=== PATIENT | male | born 1975 | race Caucasian/White ===

== ENCOUNTER 2018-06-18 08:22 | Emergency (ER) | payer OTHER ==
[2018-06-18 08:37] VITALS: BP 98/55
--- NOTE | 2018-06-18 09:08 | ED ---
HPI Cardiac - HPI Summary HPI Summary: Patient presents with over 2 weeks of not feeling well. He reports it started as a fever of 101 Fahrenheit with body aches. This lasted a couple of days and then he developed a cough that was dry. He proceeded to travel down to [place] 3 days after onset and has been visiting family down there since. Denies exertion or sick contacts. His symptoms have evolved from being afebrile to a more productive cough that is now blood-tinged. He has an appointment with his PCP for Tuesday but simply did not feel well waking this morning so decided to come here. He has little to no appetite but is trying to make himself drink water as well as bread and broth but if he has too much, his stomach does become upset. He also reports a rash at onset however admits he does give heat rash when he gets hot and he had a fever at that time. No other medical issues to report. Also admits to some mid chest pain with coughing but this seems to be better today. - History of Current Complaint Chief Complaint: UCRespiratory Stated Complaint: COUGH Time Seen by Provider: 06/18/18 08:35 Hx Obtained From: Patient Pain Intensity: 4 - Allergy/Home Medications Allergies/Adverse Reactions: Allergies Allergy/AdvReac Type Severity Reaction Status Date / Time No Known Allergies Allergy Verified 06/18/18 08:30 Home Medications: Home Medications Finasteride (ALOPECIA) (NF) [Propecia (NF)] 1 mg PO DAILY 06/18/18 [History Confirmed 06/18/18] Ibuprofen TAB* [Advil TAB*] 200 mg PO Q6H PRN 06/18/18 [History Confirmed ] guaiFENesin LIQ* [Robitussin*] 5 mg PO Q4H PRN 06/18/18 [History Confirmed 06/18] PMH/Surg Hx/FS Hx/Imm Hx Previously Healthy: Yes Endocrine/Hematology History: Denies: Hx Anticoagulant Therapy, Hx Blood Disorders, Hx Diabetes, Autoimmune Disease Cardiovascular History: Denies: Hx Aneurysm, Hx Congestive Heart Failure, Hx Deep Vein Thrombosis, Hx Embolism, Hx Hypertension, Hx Pacemaker/ICD, Hx Rheumatic Fever, Hx Syncope, Hx Valvular Heart Disease Respiratory History: Denies: Hx Asthma, Hx Chronic Obstructive Pulmonary Disease (COPD), Hx Pulmonary Edema, Hx Pulmonary Embolism Sensory History: Denies: Hx Hearing Aid Psychiatric History: Denies: Hx Panic Disorder - Surgical History Surgery Procedure, Year, and Place: LEFT ELBOW FRACTURE AGE 5. BILATERAL LASIK SURGERY; L4-5 discectomy;two wisdom teeth Infectious Disease History: No Infectious Disease History: Denies: Hx Clostridium Difficile, Hx Hepatitis, Hx Human Immunodeficiency Virus (HIV), Hx of Known/Suspected MRSA, Hx Shingles, Hx Tuberculosis, Hx Known/ Suspected VRE, Hx Known/Suspected VRSA, History Other Infectious Disease, Traveled Outside the US in Last 30 Days - Family History Known Family History: Positive: None - Social History Lives: With Family Alcohol Use: Weekly Alcohol Amount: 2 per week Hx Substance Use: No Substance Use Type: Reports: None Hx Tobacco Use: No Smoking Status (MU): Never Smoked Tobacco Review of Systems Positive: Fatigue Eyes: Negative ENT: Negative Negative: Sore Throat, Ear Ache, Nasal Discharge Positive: Chest Pain - midsternal Positive: Cough Gastrointestinal: Other - decreased appetite Genitourinary: Negative Positive: Arthralgia - at onset, Myalgia - at onset Positive: Rash - at onset Neurological: Negative Psychological: Normal All Other Systems Reviewed And Are Negative: Yes Physical Exam Triage Information Reviewed: Yes Vital Signs On Initial Exam: Initial Vitals Temp Pulse Resp BP Pulse Ox 97.8 F 98 14 98/55 81 06/18/18 08:25 06/18/18 08:25 06/18/18 08:25 06/18/18 08:25 06/18/18 08:25 Vital Signs Reviewed: Yes Appearance: Positive: Well-Nourished, Ill-Appearing - appears mildly fatigued but otherwise, no tachypnea, oriented, can transition from sitting to standing independently, etc Skin: Positive: Warm - hands are cool to touch, Skin Color Reflects Adequate Perfusion, Dry - no rash, no diaphoresis Head/Face: Positive: Normal Head/Face Inspection Eyes: Positive: Normal, EOMI, ALFONSO, Conjunctiva Clear. Negative: Conjunctiva Inflammed, Discharge ENT: Positive: Hearing grossly normal, Pharyngeal erythema - mild - oral mucosa dry, Nasal congestion - mild, TMs normal, Tonsillar swelling - +2-3 - no erythema, Tonsillar exudate - vs. radha, Uvula midline. Negative: Nasal drainage, Trismus, Muffled voice, Hoarse voice, Sinus tenderness Neck: Positive: Supple, Nontender, No Lymphadenopathy Respiratory/Lung Sounds: Positive: Breath Sounds Present, Other - possibly soft B/L crackles in lung bases Cardiovascular: Positive: Normal, RRR, S1, S2. Negative: Murmur, Rub, Leg Edema Left - (-) Jackie's B/L, Leg Edema Right Abdomen Description: Positive: Nontender, No Organomegaly, Soft Bowel Sounds: Positive: Present Musculoskeletal: Positive: Normal, Strength/ROM Intact Neurological: Positive: Normal, Sensory/Motor Intact, Alert, Oriented to Person Place, Time, CN Intact II-III Psychiatric: Positive: Normal - [place] Coma Scale Best Eye Response: 4 - Spontaneous Best Motor Response: 6 - Obeys Commands Best Verbal Response: 5 - Oriented Coma Scale Total: 15 Diagnostics - Vital Signs Vital Signs Temp Pulse Resp BP Pulse Ox 06/18/18 08:25 97.8 F 98 14 98/55 81 - Laboratory Lab Statement: Any lab studies that have been ordered have been reviewed, and results considered in the medical decision making process. Re-Evaluation - Re-Evaluation First Eval Change: Improved - nursing reports he "did not look good/pallor" upon arrival - failed nasal cannula for improved pulse ox - looks better s/p application of oxygen mask, pulse ox 93% when not speaking and sitting still - drops to 87% when answering questions but not SOB or tachypnic Disposition - Course Course Of Treatment: Pt presents w/ 2 weeks of resp sx and " not feeling well". Diff dx: influenza, PNA, PE, sepsis. Discussed pt's dangerously low pulse ox , low BP and increased HR w/ pt (went up to 120's at one point) and that he should go by ambulance to ED so he may continue to receive O2 and be monitored by EMS. He is aware of risks and benefits of taking ambulance vs. having his drive him - he is choosing to drive him - he declines ambulance and signed AMA paperwork. Spoke w/ Dr. Stokes at ED. Aware of pt's case. UPDATE: influenza neg. CXR: possible B/L patchy infiltrates - pending final read. FINAL: Rt lower lobe infiltrate - Diagnoses Provider Diagnoses: Hypoxia, PNA (pneumonia) Discharge - Sign-Out/Discharge Documenting (check all that apply): Patient Departure All imaging exams completed and their final reports reviewed: Yes - Discharge Plan Condition: Improved Disposition: AGAINST MEDICAL ADVICE Referrals: Yaneth Samuels MD [Primary Care Provider] - Additional Instructions: Go directly to the ED - Billing Disposition and Condition Condition: IMPROVED Disposition: Against Medical Advice
== END 2018-06-18 10:30 | disposition left against medical advice (07) ==
LOC: UCEAST 08:22
DX: J18.9 Pneumonia, unspecified organism (principal); R09.02 Hypoxemia
CPT/HCPCS: 71046; 99212; G0463

== ENCOUNTER 2018-06-18 10:44 | Observation (INO) | payer OTHER ==
[2018-06-18] MEDS ORDERED: Azithromycin TAB* 250 MG PO ONE (11:05)
[2018-06-18] MEDS ORDERED: cefTRIAXone(*) 1 GM in NS 0.9% 50 ML* 50 ML IVPB ONE (11:05)
[2018-06-18] MEDS ORDERED: NS 0.9% 1000 ML* 1,000 ML IV ONE (11:09)
--- NOTE | 2018-06-18 11:09 | ED ---
Shortness of Breath - HPI Summary HPI Summary: This patient is a 42 year old M brought in from [facility] accompanied by a woman with a chief complaint of worsening SOB since 06/01/2018. Patient reports productive cough with white phlegm, epistaxis when blowing nose, and decreased appetite.The patient felt like he had the flu when this illness started, with only the fever, body aches, and dry cough. The cough became productive and the fever resolved over time, but other symptoms, specifically SOB, became much worse. He states that he is trying to stay as hydrated as possible. The patient just flew back from [place] yesterday, but he developed his symptoms before travelling there. PMHx herniated disc surgery 2 years ago, elbow surgery at age 5. PMHX herniated disc. SHX occasional EtOH. No SHx drug use, tobacco use. FHX colon CA. RX none. - History of Current Complaint Chief Complaint: EDShortnessOfBreath Time Seen by Provider: 06/18/18 10:53 Hx Obtained From: Patient Onset/Duration: Gradual Onset, Lasting Weeks Associated Signs & Symptoms: Cough (Productive) - Risk Factors Pulmonary Embolism: Recent Travel - [place] - Allergy/Home Medications Allergies/Adverse Reactions: Allergies Allergy/AdvReac Type Severity Reaction Status Date / Time No Known Allergies Allergy Verified 06/18/18 08:30 PMH/Surg Hx/FS Hx/Imm Hx Endocrine/Hematology History: Denies: Hx Anticoagulant Therapy, Hx Blood Disorders, Hx Diabetes Cardiovascular History: Denies: Hx Aneurysm, Hx Congestive Heart Failure, Hx Deep Vein Thrombosis, Hx Embolism, Hx Hypertension, Hx Pacemaker/ICD, Hx Rheumatic Fever, Hx Syncope, Hx Valvular Heart Disease Respiratory History: Denies: Hx Asthma, Hx Chronic Obstructive Pulmonary Disease (COPD), Hx Pulmonary Edema, Hx Pulmonary Embolism Sensory History: Denies: Hx Hearing Aid Psychiatric History: Denies: Hx Panic Disorder - Surgical History Surgery Procedure, Year, and Place: LEFT ELBOW FRACTURE AGE 5. BILATERAL LASIK SURGERY; L4-5 discectomy;two wisdom teeth Infectious Disease History: No Infectious Disease History: Denies: Hx Clostridium Difficile, Hx Hepatitis, Hx Human Immunodeficiency Virus (HIV), Hx of Known/Suspected MRSA, Hx Shingles, Hx Tuberculosis, Hx Known/ Suspected VRE, Hx Known/Suspected VRSA, History Other Infectious Disease, Traveled Outside the US in Last 30 Days - Family History Known Family History: Positive: Other - Colon CA - Social History Alcohol Use: Weekly Alcohol Amount: 2 per week Hx Substance Use: No Substance Use Type: Reports: None Hx Tobacco Use: No Smoking Status (MU): Never Smoked Tobacco Review of Systems Negative: Fever Positive: Epistaxis - when blowing nose Positive: Shortness Of Breath, Cough - productive Positive: Other - decreased appetite All Other Systems Reviewed And Are Negative: Yes Physical Exam - Summary Physical Exam Summary: VITAL SIGNS: Reviewed. GENERAL: Patient is a well-developed and nourished male who is lying comfortable in the stretcher. Patient is not in any acute respiratory distress. HEAD AND FACE: No signs of trauma. No ecchymosis, hematomas or skull depressions. No sinus tenderness. EYES: PERRLA, EOMI x 2, No injected conjunctiva, no nystagmus. EARS: Hearing grossly intact. Ear canals and tympanic membranes are within normal limits. MOUTH: Oropharynx within normal limits. Oral mucous is dry. NECK: Supple, trachea is midline, no adenopathy, no JVD, no carotid bruit, no c- spine tenderness, neck with full ROM. CHEST: Symmetric, no tenderness at palpation LUNGS: Clear to auscultation bilaterally. No wheezing. There are crackles in the right lower lobe. He is hypoxic at 86% o2 sat. CVS: Regular rate and rhythm, S1 and S2 present, no murmurs or gallops appreciated. ABDOMEN: Soft, non-tender. No signs of distention. No rebound no guarding, and no masses palpated. Bowel sounds are normal. EXTREMITIES: FROM in all major joints, no edema, no cyanosis or clubbing. NEURO: Alert and oriented x 3. No acute neurological deficits. Speech is normal and follows commands. SKIN: Dry and warm GCS: 15 Triage Information Reviewed: Yes Vital Signs On Initial Exam: Initial Vitals Temp Pulse Resp BP Pulse Ox 97.6 F 98 18 121/62 84 06/18/18 10:47 06/18/18 10:47 06/18/18 10:47 06/18/18 10:47 06/18/18 10:47 Vital Signs Reviewed: Yes Diagnostics - Vital Signs Vital Signs Temp Pulse Resp BP Pulse Ox 06/18/18 10:47 97.6 F 98 18 121/62 84 - Laboratory Result Diagrams: 06/18/18 10:30 06/18/18 10:30 Lab Statement: Any lab studies that have been ordered have been reviewed, and results considered in the medical decision making process. - CT Chest/Thorax CTA CT Interpretation Completed By: Radiologist Summary of CT Findings: 1. No CT of evidence of pulmonary embolism. 2. CT findings are most consistent with pneumonia predominantly involving the right lower. lobe and to a lesser extent the right middle lobe. ED physician has reviewed this report - EKG 11:11 Cardiac Rate: NL - 83 bpm EKG Rhythm: Sinus Rhythm Summary of EKG Findings: No ST elevations Course/Dx - Course Assessment/Plan: This patient is a 42 year old M brought in from [facility] accompanied by a woman with a chief complaint of worsening SOB since 2017. Patient reports productive cough with white phlegm, epistaxis when blowing nose, and decreased appetite.The patient felt like he had the flu when this illness started, with only the fever, body aches, and dry cough. The cough became productive and the fever resolved over time, but other symptoms, specifically SOB, became much worse. He states that he is trying to stay as hydrated as possible. The patient just flew back from [place] yesterday, but he developed his symptoms before travelling there. PMHx herniated disc surgery 2 years ago, elbow surgery at age 5. PMHX herniated disc. SHX occasional EtOH. No SHx drug use, tobacco use. FHX colon CA. RX none. Blood work without any significant abnormality except for wbcs of 11.2 and platelets of 712. CRP of 22.4. A chest x-ray impression: Right lower lobe pneumonia. Patient was started on Rocephin and azithromycin. Because of the patients persistent hypoxia, I decided to do the chest CT to rule out PE. Chest CT impression: negative for PE. CT findings are most consistent with pneumonia predominantly involving the right lower lobe and, a lesser extent, the right middle lobe. Because of the persistent hypoxia discussed my physical exam and findings with Dr. Mai, from the hospital services, he has accepted the patient for admission. - Diagnoses Differential Diagnosis/HQI/PQRI: Positive: Bronchitis, CHF, COPD Exacerbation, Pneumonia Provider Diagnoses: Right lower lobe pneumonia, Hypoxia - Physician Notifications Discussed Care of Patient With: Javier Mai Time Discussed With Above Provider: 13:24 Instructed by Provider To: Admit As Inpatient Discharge - Sign-Out/Discharge Documenting (check all that apply): Patient Departure - admission - Discharge Plan Condition: Fair Disposition: ADMITTED TO [facility] - Billing Disposition and Condition Condition: FAIR Disposition: Admitted to [facility] - Attestation Statements Document Initiated by Scribe: Yes Documenting Scribe: David Hare Provider For Whom Scribe is Documenting (Include Credential): Elton Stokes MD Scribe Attestation: David Hernandez, cariibed for Elton Stokes MD on 06/18/18 at 1852. Scribe Documentation Reviewed: Yes Provider Attestation: The documentation as recorded by the David hung accurately reflects the service I personally performed and the decisions made by Elton lorenzo MD Status of Scribe Document: Viewed
[2018-06-18 11:33] LABS: ABS Basophils 0.1 10^3/ul (0-0.2); ABS Eosinophils 0 10^3/ul (0-0.6); ABS Lymphocytes 0.8 10^3/ul (1.0-4.8); ABS Monocytes 0.7 10^3/ul (0-0.8); ABS Neutrophils 9.6 10^3/ul (1.5-7.7); ABS Nucleated RBC 0 10^3/ul; Eosinophil % 0.2 %; Hematocrit 40 % (42-52); Hemoglobin 14.1 g/dl (14.0-18.0); Lymphocyte % 7.3 %; Mean Corpuscular HGB Conc 35 g/dl (31-36); Mean Corpuscular Hemoglobin 32 pg (27-31); Mean Corpuscular Volume 92 fL (80-94); Mean Platelet Volume 6.7 fL (7.4-10.4); Nucleated Red Blood Cells % 0; Platelet Count 712 10^3/ul (150-450); Red Blood Count 4.38 10^6/ul (4.00-5.40); Red Cell Distribution Width 14 % (10.5-15); White Blood Count 11.2 10^3/ul (3.5-10.8)
[2018-06-18 11:50] LABS: Albumin 4.3 g/dL (3.2-5.2); Albumin/Globulin Ratio 1.3 (1-3); BUN/Creatinine Ratio 10.7 (8-20); C Reactive Protein 22.49 mg/L (<8.01); Calcium 9.6 mg/dL (8.6-10.3); EGFR Non-African American 79.6 (>60); Globulin 3.4 g/dL (2-4); Total Protein 7.7 g/dL (6.4-8.9)
[2018-06-18] MEDS ORDERED: Iohexol 350* (CONTRAST) 500 ML MDV IV ONE (12:03)
[2018-06-18 12:22] LABS: Total Bilirubin 0.9 mg/dL (0.2-1.0)
[2018-06-18] MEDS ORDERED: Albuterol 2.5 MG/3 ML NEB.SOL* (0.083%) INH PRN (14:05)
[2018-06-18] MEDS ORDERED: Ondansetron INJ* 2 MG/ML VIAL IV PRN (14:05)
[2018-06-18] MEDS ORDERED: Acetaminophen TAB* 325 MG PO PRN (14:05)
[2018-06-18] MEDS ORDERED: guaiFENesin LIQ* 100 MG/5 ML UDC PO PRN (14:07)
[2018-06-18] MEDS ORDERED: NS 0.9% 1000 ML* 1,000 ML IV SCH (15:00)
--- NOTE | 2018-06-18 19:02 | HP ---
CC: Dr. Yaneth Samuels * HISTORY AND PHYSICAL: DATE OF ADMISSION: 06/18/18 PRIMARY CARE PROVIDER: Dr. Yaneth Samuels. ATTENDING PHYSICIAN: Dr. Javier Mai * (dictated by Merissa Payan NP). CHIEF COMPLAINT: Worsening cough. HISTORY OF PRESENT ILLNESS: Mr. Madonna Valentino is a 42-year-old male with no significant past medical history who presented to the emergency room today because of a worsening cough. The patient notes that his symptoms began around 06/01/18. He reports that at that time he had a fever up to 101 degrees Fahrenheit, body aches, and a dry cough. At that time, he used ibuprofen for his symptoms which provided some relief. Those symptoms lasted for approximately 3 to 4 days. On 06/04/18, he flew down to [place]. He felt as though his symptoms were improving because he no longer had a fever or body ache , though he notes that his cough became productive with a small amount of white sputum. He also notes that he has occasional bloody nose when blowing his nose. He flew back from [place] yesterday and was planning to see his primary care provider on Tuesday, though because his cough was not improving, he decided to come to the emergency room today. He does note that he has some shortness of breath with talking, though denies shortness of breath with ambulation. He reports a poor appetite. No chest pain. No urinary symptoms, focal weakness, myalgias or rashes. He has taken some guaifenesin for his cough which provided minimal relief. He has had no known sick known sick contacts. The patient presented to [facility] care today where he had a chest x - ray indicative of pneumonia and was noted to be hypoxic and he was therefore, sent to the emergency room. It was recommended that he be transported by ambulance due to his hypoxia, though he refused and had his drive him here. In the emergency room, the patient was noted to be hypoxic with an oxygen saturation of 84% on room air. At this point, he is requiring 2 L of oxygen to maintain an oxygen saturation of 92%. Labs were essentially unremarkable. He did have a CTA which was unremarkable for a PE, though did show pneumonia of the right lower and right middle lobe. Because of the patient's hypoxia and findings of community-acquired pneumonia, the hospitalist service was asked to evaluate for admission. PAST MEDICAL HISTORY: None. PAST SURGICAL HISTORY: 1. L4-L5 diskectomy approximately 2 to 3 years ago. 2. Left elbow fracture repair as a child. HOME MEDICATIONS: 1. Finasteride 1 mg p.o. daily (the patient reports that he has not taken this in 3 weeks). 2. Guaifenesin liquid 5 mg p.o. q.4 hours p.r.n. cough. 3. Ibuprofen 200 mg p.o. q.6 hours p.r.n. fever or pain. ALLERGIES: No known drug allergies. FAMILY HISTORY: The patient reports that his mother and father are alive and well. He does report colon cancer and pancreatic cancer on both his mother and father's sides. SOCIAL HISTORY: He denies any tobacco or recreational drug use. He reports occasional alcohol use with approximately 1 alcoholic drink per week. 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 He lives with his , Ana M, who would be his healthcare proxy in the event he is unable to make his own decisions. REVIEW OF SYSTEMS: An 11-point review of systems was performed and all the pertinent positive and negative findings are in the HPI. All other systems are negative. PHYSICAL EXAMINATION GENERAL: Mr. Madonna Valentino is a well-developed, well-nourished middle-aged male sitting up in bed, in no acute distress. He appears his stated age. VITAL SIGNS: Temp 97.6, heart rate 82, respiratory rate 25, oxygen saturation 92% on 2 L, blood pressure 113/76. HEENT: Head is atraumatic, normocephalic. Visual mercedes are grossly intact. Pupils are equal, round, and reactive to light and accommodation. Extraocular movements are intact. Oral mucous membranes are moist and without lesions. NECK: Full range of motion. Thyroid not palpable. Trachea midline. No lymphadenopathy. RESPIRATORY: Symmetrical chest expansion. No chest wall deformities. Coarse crackles to the right middle and lower lobes, otherwise clear throughout. No wheezes or rubs. CARDIOVASCULAR: Regular rate and rhythm. S1, S2 present. No murmurs, rubs, or gallops. No JVD. ABDOMEN: Soft, nontender to palpation. Bowel sounds normoactive throughout. No hepatosplenomegaly. EXTREMITIES: Skin warm and smooth bilaterally. No edema. No clubbing or cyanosis. Pedal pulses are 2+ bilaterally. MUSCULOSKELETAL: Full range of motion. No pain or deformities. NEUROLOGIC: Awake, alert, and oriented x4. Cranial nerves II through XII grossly intact, moves all extremities. Steady gait with no impairment. SKIN: Grossly intact without lesions. DIAGNOSTIC STUDIES/LABORATORY DATA: WBC 11.2, RBC 4.38, hemoglobin 14.1, hematocrit 40, platelets 712,000. Sodium 138, potassium 4.0, chloride 102, carbon dioxide 26, BUN 11, creatinine 1.03, glucose 98, lactic acid 1.1. Troponin 0.01. CRP 22.49. BNP 36. Chest x-ray from [facility] reads as right lower lobe patchy infiltrate that could be pneumonia in the correct clinical setting. Chest thorax CTA reads as no CT evidence of pulmonary embolism. CT finding is almost consistent with pneumonia predominantly involving the right lower lobe and to a lesser extent the right middle lobe. EKG shows normal sinus rhythm with a rate of 83, QTC 460. No ischemic changes. ASSESSMENT AND PLAN: Mr. Madonna Valentino is a 42-year-old male with no significant past medical history who presented to the emergency room today with a persistent cough and was found to be hypoxic and with community-acquired pneumonia. The patient will be admitted observation for: 1. Acute hypoxic respiratory failure: On arrival to the emergency room, the patient was satting 84% on room air. He required up to 5 L, though at this point is down to 2 L OxyMask and is satting at 92%. He did get up to walk to the bathroom on room air and desatted to be low 80s. The respiratory failure is secondary to community-acquired pneumonia which will be treated as noted below. We will provide supplemental oxygen as needed to maintain oxygen saturations in the 90s. I have ordered albuterol nebulizers p.r.n. 2. Community-acquired pneumonia: The patient's chest x-ray and CTA are consistent with right lower and middle lobe pneumonia. We will check a sputum culture and Gram stain, strep pneumonia, urine antigen, and Legionella urine antigen. He was given ceftriaxone and azithromycin in the emergency room. I will continue these. I have ordered Mucinex b.i.d. as well. 3. Fluids, electrolytes, and nutrition: The patient does not require any fluid resuscitation or electrolyte repletion at this time. He can have a regular diet. 4. Code status: The patient will be a full code. 5. DVT prophylaxis: According to the DVT risk assessment, the patient scores a 1 making him low risk. We will use ambulation as DVT prophylaxis. TIME SPENT: Approximately 50 minutes were spent on this admission, greater than half of that time spent face to face with the patient obtaining my history , performing my physical exam, and reviewing the plan of care. This case has been reviewed with my attending, Dr. Mai, who is in agreement with the plan of care. MERISSA PAYAN, [employer] [id number]/CPS #: [id number] CARLA
[2018-06-18] MEDS: guaiFENesin ER TAB 600 MG PO SCH (20:58)
[2018-06-19 06:49] LABS: BUN/Creatinine Ratio 10.6 (8-20); Calcium 8.5 mg/dL (8.6-10.3); EGFR Non-African American 88.4 (>60); Potassium 4.4 mmol/L (3.5-5.0)
[2018-06-19 07:40] VITALS: BP 100/59
[2018-06-19] MEDS: guaiFENesin ER TAB 600 MG PO SCH (07:48)
[2018-06-19 10:44] LABS: ABS Basophils 0.4 10^3/ul (0-0.2); ABS Eosinophils 0.1 10^3/ul (0-0.6); ABS Lymphocytes 1.1 10^3/ul (1.0-4.8); ABS Monocytes 0.6 10^3/ul (0-0.8); ABS Neutrophils 2.4 10^3/ul (1.5-7.7); ABS Nucleated RBC 0 10^3/ul; Eosinophil % 2.4 %; Hematocrit 34 % (42-52); Hemoglobin 11.4 g/dl (14.0-18.0); Lymphocyte % 24.6 %; Mean Corpuscular HGB Conc 33 g/dl (31-36); Mean Corpuscular Hemoglobin 30 pg (27-31); Mean Corpuscular Volume 90 fL (80-94); Mean Platelet Volume 7.2 fL (7.4-10.4); Nucleated Red Blood Cells % 0.1; Platelet Count 509 10^3/ul (150-450); Red Blood Count 3.83 10^6/ul (4.00-5.40); Red Cell Distribution Width 14 % (10.5-15); White Blood Count 4.5 10^3/ul (3.5-10.8)
[2018-06-19] MEDS ORDERED: cefTRIAXone(*) 1 GM in NS 0.9% 50 ML* 50 ML IVPB SCH (11:00)
[2018-06-19] MEDS ORDERED: Azithromycin IV(*) 500 MG in NS 0.9% 250 ML* 250 ML IVPB SCH ×2 (11:00→11:30)
--- NOTE | 2018-06-20 00:46 | DS ---
CC: Dr. Yaneth Samuels * DISCHARGE SUMMARY: DATE OF ADMISSION: 06/18/18 DATE OF DISCHARGE: 06/19/18 PRIMARY CARE PROVIDER: Dr. Yaneth Samuels. ATTENDING PHYSICIAN: Dr. Romana Luna * (dictated by Merissa Payan NP). PRIMARY DIAGNOSES: 1. Acute hypoxic respiratory failure secondary to pneumonia. 2. Community-acquired pneumonia. STUDIES WHILE IN THE HOSPITAL: 1. EKG on 06/18/18 showed normal sinus rhythm with a rate of 83, QTc 460. 2. Chest x-ray on 06/18/18 reads as right lower lobe patchy infiltrate that could be pneumonia in the correct clinical setting. 3. Chest CTA on 06/18/[address] evidence of pulmonary embolism. CT findings are most consistent with pneumonia, predominantly involving the right lower lobe and, to a lesser extent, the right middle lobe. HISTORY OF PRESENT ILLNESS AND HOSPITAL COURSE: Mr. Madonna Valentino is a 42-year- old male with no significant past medical history who presented to the emergency room on 06/18/18 with complaints of a worsening cough. Please see the history and physical by myself for a complete summary of the events leading up to this hospitalization. In short, the patient first noticed symptoms around 06/01/18. At that point he had fever, body aches, and dry cough. His symptoms progressed and he developed a productive cough. His fevers and body aches ultimately stopped. He did go to [place] and did not return until . He reports that he just was feeling fatigued and was concerned that he still had a productive cough and so he presented to [facility] where he was found to be hypoxic and referred to the emergency room. In the emergency room, the patient was found to be hypoxic in the low 80s on room air at rest. He needed 5 L of oxygen to maintain saturations in the 90s. Imaging is as noted above. He did not have leukocytosis or any signs of sepsis. He was admitted by the hospitalist service for acute respiratory failure secondary to community-acquired pneumonia. The patient had a relatively uneventful night. His oxygen was slowly titrated down. He reports feeling better this morning than yesterday. He feels as though his cough has decreased. He has been using an incentive spirometer, which he reports induces coughing fits. He did have a negative Legionella and Strep pneumoniae urine antigen. A sputum culture was obtained and as of the time of this dictation has not resulted. The patient continues to have some crackles in bilateral bases, although generally feels well. I did ambulate with the patient around the unit and he maintained saturations of 92% and greater while ambulating on room air. He is anxious to return home today. Mr. Madonna Valentino is stable for discharge. Vital signs are as follows: Temperature 98.9, heart rate 93, respiratory rate 17, oxygen saturation 95% on room air, blood pressure 100/59. MEDICATIONS: New medications: 1. Albuterol MDI 2 puffs q.4 hours p.r.n. shortness of breath and wheezing. 2. Amoxicillin 500 mg p.o. t.i.d. x5 days. 3. Azithromycin 500 mg p.o. daily x5 days. 4. Fluticasone MDI 110 mcg one puff b.i.d. x14 days. Continued medications: 1. Finasteride 1 mg p.o. daily. 2. Ibuprofen 200 mg p.o. q.6 hours p.r.n. fever. DISCHARGE PLAN: Mr. Madonna Valentino will be discharged home. Activity will be as tolerated. Diet will be regular, as tolerated. Medications are noted above. The patient has been prescribed a 5-day course amoxicillin and azithromycin, to complete a total of 7 days of antibiotic therapy. I have prescribed him an albuterol inhaler for any residual wheezing. Additionally, I prescribed him a fluticasone inhaler to take for 2 weeks for reactive airway disease secondary to the pneumonia. The patient should follow up with his primary care provider in 4 to 7 days. He has been advised to return to the emergency room or nearest hospital for any worsening of symptoms, shortness of breath, lightheadedness, dizziness, chest discomfort, high fevers, chills, night sweats, loss of consciousness, or any other worrisome signs or symptoms. This is a summarized report of a complex medical history and hospital stay. For further details, please see the entire medical record. TIME SPENT: Approximately 30 minutes were spent on this discharge. MERISSA PAYAN, DESIGN CELL ENGINEER [id number]/[facility] #: [id number] CAR[place]
== END 2018-06-19 16:25 | disposition home or self-care (01) ==
LOC: ED 10:44 → SSU 14:05
PROVIDERS: ADMIT Internal Medicine; ATTEND Internal Medicine
DX: J18.9 Pneumonia, unspecified organism (principal); J96.01 Acute respiratory failure with hypoxia; R05 Cough; R04.0 Epistaxis; R06.02 Shortness of breath
CPT/HCPCS: 36415; 71275; 80048; 80053; 83605; 83880; 84484; 85025; 86140; 87040; 87070; 87205; 87899; 93005; 96365; 96366; 96375; 99285; A9270-GY; G0378; J0456; J0696; Q9967